=== PATIENT | female | born 1955 | race Caucasian/White ===

== ENCOUNTER 2017-07-28 06:59 | Day surgery (SDC) | payer BC, OTHER ==
[2017-07-28] MEDS ORDERED: LIDOCAINE HCL 1% MPF SOL ONE (07:02)
[2017-07-28] MEDS ORDERED: PROPOFOL 500 MG/50 ML EMU IV ONE (07:02)
[2017-07-28] MEDS ORDERED: FENTANYL 100MCG/2ML SOL ONE (07:03)
[2017-07-28] MEDS ORDERED: BUPIVACAINE/EPI 0.5% 10 ML SOL INFIL ONE (07:27)
[2017-07-28 09:14] VITALS: BP 136/89; PULSE 67; RESP 18; TEMP 97.6; O2SAT 97
== END 2017-07-28 09:50 | disposition home or self-care (01) | DRG 607 ==
LOC: SURG 06:59
PROVIDERS: ATTEND Surgery
DX: D17.79 Benign lipomatous neoplasm of other sites (principal)
CPT/HCPCS: 99001; J3010; A6402; J2001; J2704